=== PATIENT | male | born 1965 | race Caucasian/White ===

== ENCOUNTER 2017-05-27 07:35 | Day surgery (SDC) | payer BC ==
[2017-05-27] VITALS (8 sets, daily range): BP systolic 101–124; BP diastolic 65–86
[~2017-05-27] VITALS: Ht 181.6 cm; Wt 79.4 kg
--- NOTE | 2017-05-27 07:11 | Pre-Procedure Note/Attestation ---
Pre-Procedure Note/Attestation Complete Prior to Procedure Planned Procedure: left Procedure Narrative: left knee scope, medial and lateral meniscectomy and decompression of cyst Indications for Procedure Pre-Operative Diagnosis: left knee medial and lateral meniscus tear Attestation I attest that I discussed the nature of the procedure; its benefits; risks and complications; and alternatives (and the risks and benefits of such alternatives ), prior to the procedure, with the patient (or the patient's legal electroplating sales representative). I attest that, if there was a reasonable possibility of needing a blood transfusion, the patient (or the patient's legal electroplating sales representative) was given the [facility] standardized written summary, pursuant to the [place] Anoop Blood Safety Act ([place] Health and Safety Code # 1645, as amended). I attest that I re-evaluated the patient just prior to the surgery and that there has been no change in the patient's H&P, except as documented below: NONE ED LUND May 27, 2017 07:11
[~2017-05-27 07:35] MED LIST: D5 1/2NS 1,000 ML IV SCH; HYDROmorphone 1mg/ml Carpuject SUBQ PRN; Norco 5mg/325mg tab ORAL PRN; Ropivacaine 5mg/ml Vial 30ml INJ ONE; Tylenol #3 tab (300mg/30mg) ORAL PRN; ceFAZolin 1 GM premix IV ONE; celeBREX 200mg Cap **SURGERY PATIENTS ONLY ORAL ONE; oxyCONTIN 20mg tab ORAL ONE
[2017-05-27] MEDS ORDERED: fentaNYL 100 mcg/2 mL IV ONE (07:36)
[2017-05-27] MEDS ORDERED: Ketorolac 30mg Inj ONE (07:36)
[2017-05-27] MEDS ORDERED: LR 1000ml ONE (07:36)
[2017-05-27] MEDS ORDERED: Propofol 200mg/20ml IV ONE (07:36)
[2017-05-27] MEDS ORDERED: GENVOYA TABLET1 EACH PO (08:06)
[2017-05-27] MEDS ORDERED: vit d PO (08:07)
[2017-05-27] MEDS ORDERED: LR 1000ml 1,000 ML IVLG SCH (09:13)
[2017-05-27] MEDS ORDERED: NS Irrig 4000ml IRRIG ONE (09:13)
--- NOTE | 2017-05-27 09:13 | Anethesia Preoperative Eval ---
Anesthesia Pre-op PMH/ROS General Date of Evaluation: May 27, 2017 Time of Evaluation: 08:42 Anesthesiologist: Mayte ASA Score: ASA 2 Mallampati Score Class I : Soft palate, uvula, fauces, pillars visible Class II: Soft palate, uvula, fauces visible Class III: Soft palate, base of uvula visible Class IV: Only hard plate visible Mallampati Classification: Class II Surgeon: Muna Diagnosis: L knee pain Surgical Procedure: L knee scope Anesthesia History: none Social History: current smoker Family History: no anesthesia problems Allergies: Coded Allergies: No Known Allergies (Unverified , 05/26/17) Medications: see eMAR Past Medical History Cardiovascular: Denies: HTN, CAD, [place], valve dz, arrhythmia, other Pulmonary: Denies: asthma, COPD, JYOTI, other Gastrointestinal/Genitourinary: Reports: GERD - mild, Denies: CRI, ESRD, other Neurologic/Psychiatric: Denies: dementia, CVA, depression/anxiety, TIA, other Endocrine: Denies: DM, hypothyroidism, steroids, other HEENT: Denies: cataract (L), cataract (R), glaucoma, [place] (L), [place] (R), other Hematology/Immune: Reports: other - HIV + asymptomatic, Denies: anemia, DVT, bleeding disorder Musculoskeletal/Integumentary: Denies: OA, RA, DJD, DDD, edema, other PMH Narrative: as above PSxH Narrative: Hernia repair colonoscopy Anesthesia Pre-op Phys. Exam Physician Exam Last Vital Signs Date Time Temp Pulse Resp B/P (MAP) Pulse Ox O2 Delivery O2 Flow Rate FiO2 05/27/17 08:31 98.1 52 18 101/82 98 Room Air Constitutional: NAD Neurologic: CN 2-12 intact Cardiovascular: RRR, no M/R/G Respiratory: CTA Gastrointestinal: S/NT/ND Airway Exam Mallampati Score: Class II MO: full Neck: flexible ROM: full Teeth: intact Dentures: no upper, no lower Anesthesia Pre-op A/P Labs see chart Studies Pre-op Studies: EKG - NSR Risk Assessment & Plan Assessment: ASA 2 Plan: GA with LMA. Status Change Before Surgery: No Pre-Antibiotics Drug: Ancef 2n gr. Given Within 1 Hr of Incision: Yes Time Given: 08:57 SIMÓN SIDHU M.D. May 27, 2017 09:13
[2017-05-27] MEDS ORDERED: Hydromorphone 0.5mg/0.5ml inj IVP PRN (09:15)
[2017-05-27] MEDS ORDERED: Meperidine 50mg/ml Inj(FOR RIGORS ONLY) IV PRN (09:15)
[2017-05-27] MEDS ORDERED: DiphenhydrAMINE 50mg/ml Inj IVP PRN (09:15)
[2017-05-27] MEDS ORDERED: Ketorolac 30mg Inj IV PRN (09:15)
--- NOTE | 2017-05-27 09:27 | Brief Operative Note ---
Immediate Post Operative Note Operative Note Chief Complaint: left knee pain Pre-op Diagnosis: left knee lateral meniscus tear Procedure: left knee scope, lateral meniscectomy Post-op Diagnosis: same as pre-op Findings: consistent w/pre-op dx studies Surgeon: md tommy [employer] Drawer: andra man Anesthesiologist: md lizeth Anesthesia: general Specimen: none Complications: none Condition: stable Fluids: ns Estimated Blood Loss: minimal Drains: none Implant(s) used?: No BIGG MAN May 27, 2017 09:27
--- NOTE | 2017-05-27 09:43 | Immediate Post-Op Evaluation ---
Immediate Post-Op Evalulation Immediate Post-Op Evalulation Procedure: L knee arthroscopy medial meniscectomy Date of Evaluation: May 27, 2017 Time of Evaluation: 09:42 IV Fluids: 800 Blood Products: none Estimated Blood Loss: min Urinary Output: none Blood Pressure Systolic: 114 Blood Pressure Diastolic: 69 Pulse Rate: 64 Respiratory Rate: 20 O2 Sat by Pulse Oximetry: 99 Temperature (Fahrenheit): 97.8 Nausea: No Vomiting: No Complications none Patient Status: reacts, patent, none Hydration Status: adequate SIMÓN SIDHU M.D. May 27, 2017 09:43
--- NOTE | 2017-05-27 20:32 | Operative Note - Dictated ---
DATE OF OPERATION: 05/27/2017 PREOPERATIVE DIAGNOSIS: Left knee large lateral meniscus tearing with parameniscal cyst. POSTOPERATIVE DIAGNOSIS: Left knee large lateral meniscus tearing with parameniscal cyst. PROCEDURE: 1. Left knee arthroscopy and extensive intra-articular shaving. 2. Left knee partial lateral meniscectomy involving 30% of posterior horn and body of lateral meniscus. 3. Left knee decompression of parameniscal cyst. SURGEON: Moy Toro M.D. CUTTER INSPECTOR: Silvia Layton PA-C. Internist was present during the actual operative portion of the case and was important and essential part of the operation. During the operation, the obstetric assistant held and operated the arthroscopic camera for visualization, assisted by manipulating the leg to help with visualization, and helped with essential parts of the repair process as necessary such as operating surgical instruments under surgeon supervision, suture management, and wound closures. ANESTHESIOLOGIST: Javier Carmona M.D. ANESTHESIA: LMA anesthesia. TOURNIQUET TIME: 25 minutes. ESTIMATED BLOOD LOSS: Less than 20 mL. COMPLICATIONS: None. SURGICAL INDICATION: The patient is a 52-year-old male who sustained the above injury to his knee. The patient was treated non-operative initially, but this did not alleviate the patients symptoms. Therefore, after discussing all non-surgical and surgical options, and discussing all foreseeable risk and benefits of surgery, the patient opted for surgical treatment as described above. PATIENT POSITIONING: The patient was brought to the operating room table and placed supine. All pressure points were well padded. General anesthesia was induced and a well-padded tourniquet was placed on the thigh. The lateral post was placed and positioned to allow for opening of the medial compartment of the knee without placing pressure over the fibular head. The patients entire leg was prepped and draped in the usual sterile fashion. Time-out was performed and preop antibiotic was given and after exsanguinating the lower extremity, the tourniquet was inflated to 275 mmHg. EXAMINATION OF THE KNEE UNDER ANESTHESIA: Before prepping and draping the knee and while the patient was relaxed under general anesthesia, the knee was examined for ROM, and anterior and posterior, medial ,and lateral, posterolateral, and posteromedial instability. Pivot-shift testing was performed. There was no evidence of loss of motion or instability and the pivot-shift testing was negative. PORTAL PLACEMENT: The lateral portal was placed with the knee flexed to 90 degrees at the level of inferior border of the patella in line with the lateral border of the patella. A 1/2 cm skin incision was made with an #11 blade, and using a blunt obturator, the capsule was gently penetrated. Sterile saline solution was then infused inside the knee with the aid of a pump set at 35 mmHg pressure. Under direct visualization, placement of the medial portal was preliminarily judged using a spinal needle, and it was subsequently established using the same technique as the lateral portal. Care was given not to injure the cutaneous branches of the medial saphenous nerve or the subcutaneous veins. DIAGNOSTIC ARTHROSCOPY: The suprapatellar patellar pouch was visualized. There was no evidence of scar tissue or loose fragments. The medial and lateral patellar facets and trochlear groove articular cartilage was visualized. These structures were intact and were devoid of any articular cartilage damage. The medial plica shelf and the corresponding medial femoral condyle articular cartilage were visualized. There was no significantly thickening of the medial plica shelf and there were no kissing? lesion over the medial femoral condyle. The lateral gutter and the posterolateral corner of the knee were visualized. There were no loose bodies, and the popliteus tendon and other structures of the posterolateral corner of the knee were intact intra-articularly. At this point, the knee was placed in the [id number] position and the lateral compartment was entered. The lateral femoral condyle, lateral tibial plateau, and the anterior body and the posterior horn of the lateral meniscus were visualized and probed. The articular surfaces were intact and devoid of articular cartilage damage. There was a tear of the posterior horn and body of the lateral meniscus with a horizontal cleavage component as well as a flip component. There was a large lateral parameniscal cyst that could be visualized through the synovium. The knee was then placed at 90 degrees and the ACL and PCL were visualized and probed. The ACL was completely intact on visualization and probing, and it had excellent tension. The PCL was completely intact on visualization and probing and it had excellent tension. The medial compartment was then entered and the medial femoral condyle, medial tibial plateau, the anterior body, and the posterior horn of the medial meniscus were visualized and probed. The articular surfaces were intact and devoid of articular cartilage damage. The medial meniscus was completely intact both on its undersurface and on the top. The medial gutter was visualized. There was no evidence of defect or loose fragments. The scope was then brought back to the patellofemoral compartment. OPERATIVE ARTHROSCOPY: At this point, all loose debris and fragments were removed with the use of suction motorized shaver. Specific attention was given to assure all visible loose fragments were irrigated out of the knee joint with pump inflow and cannula outflow system. At this point, attention was given to the lateral meniscus. Using combination of baskets and reina, the torn portion of the lateral meniscus was removed. Attention was given to remove all displaced and unstable portion of the lateral meniscus while maintaining as much of the functional portion of the meniscus as possible. Approximately, 35% of the posterior horn and body of the meniscus was removed in this fashion. The transition between the meniscectomy portion and intact portion of the meniscus was smoothed out with combination of small baskets and reina. Excellent transition zone was obtained in this fashion. At this point, care was given to the parameniscal cyst. As a part of the meniscectomy, the cyst was partially decompressed. Subsequently, a small window of synovial resection was performed just lateral to the meniscal capsular junction. The lateral collateral ligament could be visualized and this decompressed the cyst. Cyst fluid could be visualized as it extruded out. At this point, the lateral cyst was decompressed. CONDITION AT DISCHARGE FROM OPERATING ROOM: The knee was irrigated with copious amount of normal saline at the end of the procedure. The scope was removed and the water was drained. The skin edges were re-approximated and sterile dressing was applied. All lap count and instrument counts were correct. The patient tolerated the procedure well without complications and was taken to the recovery room in stable condition. Moy Toro M.D. DR: Moises JOB#: [id number] CC: Moy Toro M.D.; Fax#: [phone]
== END 2017-05-27 11:00 | disposition home or self-care (01) ==
LOC: SUR 07:35
DX: S83.282A Other tear of lateral meniscus, current injury, left knee, initial encounter (principal); M23.001 Cystic meniscus, unspecified lateral meniscus, left knee; X58.XXXA Exposure to other specified factors, initial encounter; Y93.9 Activity, unspecified; Y92.9 Unspecified place or not applicable; Z82.49 Family history of ischemic heart disease and other diseases of the circulatory system; K21.9 Gastro-esophageal reflux disease without esophagitis; F17.200 Nicotine dependence, unspecified, uncomplicated
CPT/HCPCS: 27347; 29881; J0690; J1885; J2704; J2795; J3010; J7120; 94003; 94150